=== PATIENT | female | born 1985 | race Caucasian/White ===

== ENCOUNTER 2021-02-02 03:31 | Emergency (ER) | payer OTHER ==
[2021-02-02 04:08] LABS: HEMOGLOBIN 12.4 gm/dl (12.3-15.3); RED BLOOD COUNT 3.75 M/UL (4.00-5.10); WHITE BLOOD COUNT 13.6 K/UL (4.5-11.0)
[2021-02-02 04:43] LABS: BUN/CREATININE RATIO 22 (0-10)
[2021-02-02] MEDS ORDERED: FAMOTIDINE20 MG PO (05:48)
[2021-02-02] MEDS ORDERED: PREDNISONE 50 M50 MG PO (05:48)
== END 2021-02-02 05:57 | disposition home or self-care (01) ==
LOC: ER1 03:31
PROVIDERS: Student in an Organized Health Care Education/Training Program
DX: L50.0 Allergic urticaria (principal); F17.210 Nicotine dependence, cigarettes, uncomplicated
CPT/HCPCS: 80053; 84702; 85025; 96374; 99283; J1200

== ENCOUNTER 2021-02-03 16:23 | Emergency (ER) | payer OTHER ==
[~2021-02-03 16:23] MED LIST: FAMOTIDINE20 MG PO; PREDNISONE 50 M50 MG PO
== END 2021-02-03 20:40 | disposition left against medical advice (07) ==
LOC: ER1 16:23
DX: Z53.21 Procedure and treatment not carried out due to patient leaving prior to being seen by health care provider (principal)

== ENCOUNTER 2021-03-05 22:35 | Emergency (ER) | payer OTHER ==
[2021-03-05 23:43] LABS: HEMOGLOBIN 11.9 gm/dl (12.3-15.3); RED BLOOD COUNT 3.55 M/UL (4.00-5.10); WHITE BLOOD COUNT 8.9 K/UL (4.5-11.0)
[2021-03-06 00:08] LABS: BUN/CREATININE RATIO 13 (0-10)
== END 2021-03-06 04:16 | disposition home or self-care (01) ==
LOC: ER1 22:35
PROVIDERS: Physician Assistant Medical
DX: R60.0 Localized edema (principal); F17.210 Nicotine dependence, cigarettes, uncomplicated
CPT/HCPCS: 71045; 80053; 81001; 82550; 82553; 83874; 83880; 84484; 85025; 85610; 87086; 93005; 99284

== ENCOUNTER 2021-10-03 21:55 | Emergency (ER) | payer OTHER | END 2021-10-04 00:20 | disposition home or self-care (01) | LOC: ER1 21:55 | DX: Z20.828 Contact with and (suspected) exposure to other viral communicable diseases (principal); F17.210 Nicotine dependence, cigarettes, uncomplicated | CPT/HCPCS: 99282 ==